=== PATIENT | male | born 2000 | race Hispanic/Latino ===

== ENCOUNTER 2020-09-04 20:31 | Emergency (ER) | payer SELFPAY ==
[~2020-09-04 20:31] MED LIST: NA CHLORIDE 0.9% 2,000 ML ONE; ONDANSETRON 4 MG/2 ML VIAL ONE
--- OUTSIDE RECORDS SUMMARY | 2020-09-04 21:08 | XMS REPORT | Continuity of Care Document ---
:[address] [facility] t Address [address] [place] [address] Care Team Providers Name Role Phone Pob1, Care Clinic Attending Clinician Unavailable Alonzo Aquino Attending Clinician Doctor Unassigned, Name Attending Clinician Unavailable Problems This patient has no known problems. Allergies, Adverse Reactions, Alerts This patient has no known allergies or adverse reactions. Medications This patient has no known medications. Procedures This patient has no known procedures. Encounters Start End Encounter Admission Attending Care Care Encounter Source Date/Time Date/Time Type Type Clinicians Facility Department ID 2019-07-02 2019-07-02 Telephone Pob1, Acute [facility] [id number] 00:00:00 00:00:00 Care [facility] [id number] [place] [id number] Professio [phone] nal [address] 2019-07-01 2019-07-01 Telephone Devin [facility] [id number] 00:00:00 00:00:00 [facility] [id number] [place] [id number] Professio [phone] nal [address] 2019-06-28 2019-06-28 Office Pob1, Acute [place] [id number] 13:06:38 15:50:56 Visit [facility] [id number] [place] [id number] Professio [phone] nal [address] 2019-06-28 2019-06-28 Orders Doctor ALPHONSO [id number] 00:00:00 00:00:00 Only Unassigned, ALEXX [id number] [place] [facility] [phone] [id number] Results This patient has no known results.
[2020-09-05] MEDS ORDERED: MORPHINE 2 MG/ML SYR ONE (00:06)
[2020-09-05] MEDS ORDERED: ONDANSETRON 4 MG/2 ML VIAL ONE (00:06)
[2020-09-05] MEDS ORDERED: NA CHLORIDE 0.9% 1,000 ML ONE (00:07)
[2020-09-05] MEDS ORDERED: FAMOTIDINE 20 MG/2 ML VIAL IV ONE (00:44)
[2020-09-05 01:25] LABS: Absolute Lymphocytes (CBC) 3.6 K/uL (0.7-4.9); Basophils % 0.4 % (0-1.3); Hematocrit 45.6 % (39.6-49.0); Lymphocytes % 34.4 % (15.3-44.8); MPV 9.7 fL (7.6-11.3); RBC Red Blood Cell Count 5.13 M/uL (4.33-5.43)
[2020-09-05 01:39] LABS: ALT/SGPT 145 U/L (12-78); AST/SGOT 55 U/L (15-37); Albumin 4.4 g/dL (3.4-5.0); Alkaline Phosphatase 121 U/L (45-117); BUN Blood Urea Nitrogen 11 mg/dL (7-18); Bicarbonate 28 mmol/L (21-32); Bilirubin Direct 0.2 mg/dL (0-0.2); Bilirubin Total 1.2 mg/dL (0.2-1.0); Glucose Level 81 mg/dL (74-106); Lipase 39 U/L (73-393); Protein, Total 8.3 g/dL (6.4-8.2); Sodium Level 142 mmol/L (136-145)
--- NOTE | 2020-09-05 02:42 | ER ---
Nurse's Notes [facility] Name: Rigoberto Rangel Age: 20 yrs Sex: Male : 2000 Arrival Date: 09/04/2020 Time: 20:33 Bed 19 Private MD: Diagnosis: Nausea and vomiting;Diarrhea, unspecified Presentation: 09/04 21:40 Chief complaint: Patient states: yesterday ot was at work , she bent over and felt like iw something twisted , has had vomiting and diarrhea X 10 since then. Ebola Screen: Patient negative for fever greater than or equal to 101.5 degrees Fahrenheit, and additional compatible Ebola Virus Disease symptoms Patient denies exposure to infectious person. Patient denies travel to an Ebola-affected area in the 21 days before illness onset. No symptoms or risks identified at this time. Initial Sepsis Screen: Does the patient meet any 2 criteria? No. Patient's initial sepsis screen is negative. Does the patient have a suspected source of infection? No. Patient's initial sepsis screen is negative. Risk Assessment: Do you want to hurt yourself or someone else? Patient reports no desire to harm self or others. Onset of symptoms was September 03, 2020. 21:40 Method Of Arrival: Ambulatory iw 21:40 Acuity: SONAM 3 iw Historical: - Allergies: 22:29 No Known Allergies; iw - Home Meds: 22:29 None [Active]; iw - PMHx: 22:29 None; iw - PSHx: 22:29 None; iw Assessment: 23:45 General: Appears in no apparent distress. Behavior is calm, cooperative. Pain: ad1 Complains of pain in epigastric area Pain radiates to back. Pain: Pain currently is 6 out of 10 on a pain scale. Neuro: Level of Consciousness is awake, alert, obeys commands, Oriented to person, place, time, situation. Cardiovascular: No deficits noted. Respiratory: No deficits noted. Airway is patent Trachea midline Respiratory effort is even, unlabored. GI: Abdomen is round Bowel sounds present X 4 quads. Abdomen is tender to palpation in epigastric area Reports upper abdominal pain, diarrhea, intolerance of food, nausea, vomiting. 09/05 00:30 Reassessment: Patient and/or family updated on plan of care and expected duration. Pain ad1 level reassessed. Patient is alert, oriented x 3, equal unlabored respirations, skin warm/dry/pink. Patient states feeling better. Patient states symptoms have improved. reports pain at a 4/10, nausea resolved. 01:28 Reassessment: Patient appears in no apparent distress at this time. No changes from ad1 previously documented assessment. Patient and/or family updated on plan of care and expected duration. Pain level reassessed. Patient is alert, oriented x 3, equal unlabored respirations, skin warm/dry/pink. awaiting CT. 02:32 Reassessment: Patient appears in no apparent distress at this time. No changes from ad1 previously documented assessment. Patient and/or family updated on plan of care and expected duration. Pain level reassessed. Patient is alert, oriented x 3, equal unlabored respirations, skin warm/dry/pink. Patient denies pain at this time. Vital Signs: 09/04 21:40 BP 142 / 79; Pulse 70; Resp 16; Temp 98.2; Pulse Ox 100% on R/A; Weight 113.4 kg; iw Height 5 ft. 8 in. (172.72 cm); 09/05 00:00 BP 146 / 93; Pulse 105; Resp 18; Pulse Ox 99% ; ad1 01:27 BP 120 / 66; Pulse Ox 97% ; ad1 02:38 BP 99 / 57; Pulse 65; Resp 18; Pulse Ox 97% ; ad1 09/04 21:40 Body Mass Index 38.01 (113.40 kg, 172.72 cm) iw ED Course: 09/04 20:33 Patient arrived in ED. es 22:28 Triage completed. iw 23:29 Frank Florez PA is PHCP. cp 23:29 Camron Anderson MD is Attending Physician. cp 09/05 02:06 CT Abd/Pelvis - IV Contrast Only In Process Unspecified. EDMS Administered Medications: 00:16 Drug: morphine 2 mg Route: IVP; Site: right forearm; ad1 00:17 Drug: Zofran (Ondansetron) 4 mg Route: IVP; Site: right forearm; ad1 00:17 Drug: NS 0.9% 1000 ml Route: IV; Rate: 1 bolus; Site: right forearm; ad1 00:38 Drug: Pepcid (famotidine) 20 mg Route: IVP; Site: right forearm; ad1 02:38 Drug: Ciprofloxacin 500 mg Route: PO; ad1 Outcome: 02:41 Discharge ordered by . gabriela 03:01 Discharged to home ambulatory. ad1 03:01 Condition: improved 03:01 Discharge instructions given to patient, Instructed on discharge instructions, follow up and referral plans. medication usage, Demonstrated understanding of instructions, follow-up care, medications, Prescriptions given X 2. 03:01 Patient left the ED. ad1 Signatures: Dispatcher [employer] EDSuzette Ortiz Irene RN RN iw Raquel Hernandez RN RN ad1 Frank Florez, BABAK PA cp
--- NOTE | 2020-09-05 02:42 | EDPHYS ---
Physician Documentation [facility] Name: Rigoberto Rangel Age: 20 yrs Sex: Male : 2000 Arrival Date: 09/04/2020 Time: 20:33 Bed 19 Private MD: ED Physician Camron Anderson HPI: 09/04 23:45 This 20 yrs old Male presents to ER via Ambulatory with complaints of cp Vomiting/Diarrhea. 23:45 The patient presents to the emergency department with nausea, with "dry heaves", cp vomiting, that is continuous, 10 times today, described as bilious, diarrhea, that is continuous, 10 times today, abdominal pain, of the epigastric area. Onset: The symptoms/episode began/occurred yesterday, started at work after bending over, felt like stomach twisted. Possible causes: unknown. Associated signs and symptoms: Pertinent negatives: dysuria, fever, GI bleeding, active vomiting. Severity of symptoms: in the emergency department the symptoms are unchanged despite home interventions. Historical: - Allergies: 22:29 No Known Allergies; iw - Home Meds: 22:29 None [Active]; iw - PMHx: 22:29 None; iw - PSHx: 22:29 None; iw ROS: 23:50 Constitutional: Positive for poor PO intake, Negative for body aches, chills, fever. cp 23:50 Eyes: Negative for injury, pain, redness, and discharge. cp 23:50 ENT: Negative for ear pain, sore throat, difficulty swallowing, difficulty handling secretions. 23:50 Cardiovascular: Negative for chest pain. 23:50 Respiratory: Negative for cough, shortness of breath, wheezing. 23:50 Abdomen/GI: Positive for abdominal pain, nausea, vomiting, and diarrhea, Negative for constipation, hematemesis, black/tarry stool, rectal bleeding. 23:50 Back: Positive for radiated pain. 23:50 : Negative for urinary symptoms, testicular pain 23:50 Neuro: Negative for altered mental status, headache, weakness. 23:50 All other systems are negative. Exam: 23:55 Constitutional: The patient appears in no acute distress, alert, awake, non-toxic, well cp developed, well nourished. 23:55 Head/Face: Normocephalic, atraumatic. cp 23:55 Eyes: Periorbital structures: appear normal, Conjunctiva: normal, no exudate, no injection, Sclera: no appreciated abnormality, Lids and lashes: appear normal, bilaterally. 23:55 ENT: External ear(s): are unremarkable, Nose: is normal, Mouth: Lips: moist, Oral mucosa: moist, Posterior pharynx: Airway: no evidence of obstruction, patent. 23:55 Chest/axilla: Inspection: normal. 23:55 Cardiovascular: Rate: normal, Rhythm: regular. 23:55 Respiratory: the patient does not display signs of respiratory distress, Respirations: normal, no use of accessory muscles, no retractions, labored breathing, is not present, Breath sounds: are clear throughout, no decreased breath sounds. 23:55 Abdomen/GI: Inspection: abdomen appears normal, Bowel sounds: active, all quadrants, Palpation: soft, in all quadrants, moderate abdominal tenderness, in the epigastric area, rebound tenderness, is not appreciated, involuntary guarding, is not appreciated. 23:55 Back: CVA tenderness, is absent. Vital Signs: 21:40 BP 142 / 79; Pulse 70; Resp 16; Temp 98.2; Pulse Ox 100% on R/A; Weight 113.4 kg; iw Height 5 ft. 8 in. (172.72 cm); 09/05 00:00 BP 146 / 93; Pulse 105; Resp 18; Pulse Ox 99% ; ad1 01:27 BP 120 / 66; Pulse Ox 97% ; ad1 02:38 BP 99 / 57; Pulse 65; Resp 18; Pulse Ox 97% ; ad1 09/04 21:40 Body Mass Index 38.01 (113.40 kg, 172.72 cm) iw MDM: 09/04 23:34 Patient medically screened. cp 09/05 00:00 Differential diagnosis: gastritis, cholecystitis, pancreatitis, appendicitis, viral cp gastroenteritis, gastroenteritis. 02:39 Data reviewed: vital signs, nurses notes, lab test result(s), radiologic studies, CT cp scan. Special discussion: Based on the patient's Hx, exam, and Dx evaluation, there is no indication for emergent surgery or inpatient Tx. It is understood by the patient/guardian that if the Sx's persist or worsen they need to return immediately for re-evaluation. ED course: VSS. Patient resting comfortably in exam room. Vomiting resolved. Will discharge to home for continued monitoring. 09/04 23:38 Order name: Basic Metabolic Panel; Complete Time: 01:40 cp 09/05 01:40 Interpretation: Normal except: CL 110. 09/04 23:38 Order name: CBC with Diff; Complete Time: 01:40 cp 09/05 01:41 Interpretation: Reviewed. 09/04 23:38 Order name: Hepatic Function; Complete Time: 01:40 cp 09/05 01:41 Interpretation: Normal except: AST 55; ALT 145; ALK 121; BILIT 1.2; TP 8.3; GLOB 3.9. cp 09/04 23:38 Order name: Lipase; Complete Time: 01:40 cp 09/05 01:41 Interpretation: Abnormal: LIP 39. 09/04 23:38 Order name: CT Abd/Pelvis - IV Contrast Only cp 09/04 23:38 Order name: IV Saline Lock; Complete Time: 00:17 cp 09/04 23:38 Order name: Labs collected and sent; Complete Time: 00:18 cp 09/05 02:25 Order name: PO challenge; Complete Time: 02:59 cp Administered Medications: 00:16 Drug: morphine 2 mg Route: IVP; Site: right forearm; ad1 00:17 Drug: Zofran (Ondansetron) 4 mg Route: IVP; Site: right forearm; ad1 00:17 Drug: NS 0.9% 1000 ml Route: IV; Rate: 1 bolus; Site: right forearm; ad1 00:38 Drug: Pepcid (famotidine) 20 mg Route: IVP; Site: right forearm; ad1 02:38 Drug: Ciprofloxacin 500 mg Route: PO; ad1 Disposition: 07:45 Co-signature as Attending Physician, Camron Anderson MD. [email or web address] Disposition: 09/05/20 02:41 Discharged to Home. Impression: Nausea and vomiting, Diarrhea, unspecified. - Condition is Stable. - Discharge Instructions: Food Choices to Help Relieve Diarrhea, Adult, Dehydration, Adult, Diarrhea, Adult, Nausea and Vomiting, Adult. - Prescriptions for Cipro 500 mg Oral Tablet - take 1 tablet by ORAL route every 12 hours for 7 days; 14 tablet. promethazine 25 mg Oral Tablet - take 1 tablet by ORAL route every 6 hours As needed; 20 tablet. - Medication Reconciliation Form, Thank You Letter, Antibiotic Education, Prescription Opioid Use, Work release form form. - Follow up: Private Physician; When: 2 - 3 days; Reason: Worsening of condition. - Problem is new. - Symptoms have improved. Signatures: Dispatcher [employer] EDKrystal Torres, RN RN iw Raquel Hernandez RN RN ad1 Frank Florez PA PA cp Camron Anderson MD MD [email or web address] Corrections: (The following items were deleted from the chart) 03:01 02:41 09/05/2020 02:41 Discharged to Home. Impression: Nausea and vomiting; Diarrhea, ad1 unspecified. Condition is Stable. Forms are Medication Reconciliation Form, Thank You Letter, Antibiotic Education, Prescription Opioid Use. Follow up: Private Physician; When: 2 - 3 days; Reason: Worsening of condition. Problem is new. Symptoms have improved. cp
[2020-09-05] MEDS ORDERED: CIPROFLOXACIN HCL 500 MG TAB ONE (03:04)
[2020-09-05 03:07] VITALS: TEMP 98.2
[2020-09-05 03:09] VITALS: O2SAT 97
[2020-09-05 03:10] VITALS: BP 99/57
--- NOTE | 2020-09-05 21:00 | RAD REPORT ---
EXAM DESCRIPTION: CT - Abdomen Pelvis W Contrast - 09/05/2020 6:30 am CLINICAL HISTORY: 20 years, Male, ABD PAIN COMPARISON: None. TECHNIQUE: Contrast-enhanced images of the abdomen and pelvis were performed utilizing 5 mm slice th ickness at 5 mm interval reconstruction from the lung bases to the ischial tuberosities after the adm inistration of IV contrast as well as delayed portal venous phase/venous phase through the kidneys an d bladder were also generated. In addition multiplanar reformats in the coronal and sagittal plane were obtained and reviewed. This exam was performed according to our departmental dose-optimization protocol, which includes auto mated exposure control, adjustment of the mA and/or kV according to patient size and/or use of iterat zoe reconstruction technique. FINDINGS: The lung bases demonstrate to be clear. The liver demonstrate slight decreased attenuation corresponding to mild fatty infiltration. Otherwis e the liver, gallbladder, pancreas, spleen and adrenal glands demonstrate to be unremarkable, no foca l lesions are noted. The kidneys demonstrate normal uptake of contrast media with no evidence for hydronephrosis. Grossly the unopacified stomach, small bowel and large bowel demonstrate to be within normal limits. There is no evidence for bowel dilatation/or free air. The appendix is normal. The urinary bladder demonstrate to be unremarkable. The prostate gland is normal. The aorta demon strate to be normal. There is no retroperitoneal lymphadenopathy. There is no evidence for ascites and/or significant abnormal fluid collections. The rest of the soft tissue and bony structures are wi thin normal limits. IMPRESSION: Mild fatty infiltration of the liver. No CT evidence of acute intra-abdominal process. Electronically signed by: Alex Arreguin MD 09/05/2020 2:20 AM CDT Due to temporary technical issues with the PACS/Fluency reporting system, reports are being signed by the in house radiologists without review as a courtesy to insure prompt reporting. The interpreting radiologist is fully responsible for the content of the report.
== END 2020-09-05 03:01 | disposition home or self-care (01) ==
LOC: ER 20:31
DX: R11.2 Nausea with vomiting, unspecified (principal); R19.7 Diarrhea, unspecified
CPT/HCPCS: 36415; 74177; 80048; 80076; 83690; 85025; 96374; 96375; 99283; J2405; J7030; Q9967